=== PATIENT | male | born 1985 ===

== ENCOUNTER 2018-08-18 07:06 | Emergency (ER) | payer OTHER ==
[~2018-08-18] VITALS: Ht 172.7 cm; Wt 79.4 kg
[2018-08-18] MEDS ORDERED: ALBUTEROL2.5 MG/3 M IH (07:44)
[2018-08-18] MEDS ORDERED: PROVENTIL HFA6.7 GM IH (10:23)
== END 2018-08-18 13:42 | disposition home or self-care (01) ==
LOC: ER 07:06
DX: J45.998 Other asthma (principal)

== ENCOUNTER 2018-10-28 12:00 | Emergency (ER) | payer OTHER ==
[~2018-10-28] VITALS: Ht 167.6 cm; Wt 78.5 kg
[~2018-10-28 12:00] MED LIST: ALBUTEROL2.5 MG/3 M IH; PROVENTIL HFA6.7 GM IH
== END 2018-10-28 17:59 | disposition home or self-care (01) ==
LOC: ER 12:00
DX: K29.60 Other gastritis without bleeding (principal)

== ENCOUNTER → 2020-06-25 | Emergency (ER) | payer OTHER ==
[~2020-06-25] VITALS: Ht 170.2 cm; Wt 76.2 kg
[~2020-06-25] MED LIST changes: +AMOXICILLIN500 M1; +CLINDAMYCIN HC300 MG
== END | disposition left against medical advice (07) ==
LOC: ER 22:24
DX: G89.18 Other acute postprocedural pain (principal); K08.89 Other specified disorders of teeth and supporting structures; R51 Headache; R60.0 Localized edema